=== PATIENT | female | born 1960 | race Caucasian/White ===

== ENCOUNTER 2020-08-29 07:30 | Day surgery (SDC) | payer OTHER ==
[2020-08-22 11:45] VITALS: BMI 32.4
--- OUTSIDE RECORDS SUMMARY | 2020-08-29 07:35 | XMS ---
:1960 Author Organization [facility] Care Team Providers Name Role Phone ISABEL BLANCO Unavailable Unavailable GELY FRIEDMAN Unavailable Unavailable PRADIP EASLEY Unavailable Unavailable MARLO PLASENCIA MD Unavailable Unavailable MARLO PLASENCIA MD Unavailable Unavailable SIMEON LANIER Unavailable Unavailable SHIVANI MCCONNELL Unavailable Unavailable MAGDY, KING Unavailable Unavailable RALPH, R, [id number] Unavailable Unavailabl QIANA Lam Unavailable Unavailable AVTAR KAJANNAK Unavailable Unavailable LEFKOVCAT, MERE Unavailable Unavailable MARGE MONTES Unavailable Unavailable KIARRA ZAMBRANO Unavailable Unavailable NAVARRO HURST Unavailable Unavailable ADA AMOR Unavailable Unavailable EMERGENCY SERVICE, X Unavailable Unavailable MARCOS TRISTAN Unavailable Unavailable HAL MURILLO Unavailable Unavailable DEN TIDWELL Unavailable Unavailable JORJE HODGES Unavailable Unavailable Re-disclosure Warning The records that you are about to access may contain information from federally- assisted alcohol or drug abuse programs. If such information is present, then the following federally mandated warning applies: This information has been disclosed to you from records protected by federal confidentiality rules (42 CFR part 2). The federal rules prohibit you from making any further disclosure of this information unless further disclosure is expressly permitted by the written consent of the person to whom it pertains or as otherwise permitted by 42 CFR part 2. A general authorization for the release of medical or other information is NOT sufficient for this purpose. The Federal rules restrict any use of the information to criminally investigate or prosecute any alcohol or drug abuse patient.The records that you are about to access may contain highly sensitive health information, the redisclosure of which is protected by Article 27-F of the [facility] Public Health law. If you continue you may haveaccess to information: Regarding HIV / AIDS; Provided by facilities licensed or operated by the [facility] Office of Mental Health; or Provided by the [facility] Office for People With Developmental Disabilities. If such information is present, then the following [facility] mandated warning applies: This information has been disclosed to you from confidential records which are protected by state law. State law prohibits you from making any further disclosure of this information without the specific written consent of the person to whom it pertains, or as otherwise permitted by law. Any unauthorized further disclosure in violation of state law may result in a fine or penitentiary sentence or both. A general authorization for the release of medical or other information is NOT sufficient authorization for further disclosure. Encounters Encounter Providers Location Date Indications Data Source(s ) Outpatient Attender: MAGDY, 08/18/2020 [id number] [facility] MAGDY [employer] Contemporary Analysis REENAReferrer: KING CURRAN [id number] Outpatient Attender: MAGDY, 08/16/2020 06:00:00 [facility]AN [facility] KING Contemporary Analysis Outpatient Attender: SIMON, 07/28/2020 [facility] Contemporary Analysis Outpatient Attender: KAUSHAL 07/25/2020 06:00:00 AM [facility] PRADIP HogdesAdmitter: EDT [facility] Contemporary Analysis PRADIP EASLEY FV Outpatient Attender: KUN 07/13/2020 [facility] DARCIEAAttender: 06:00:[address] [facility] ADA AMORAdmitter: MARCOS TRISTAN Emergency Attender: TRACIE, 07/03/2020 [facility] SAMARAttender: 11:52:00 PM EDT AQR [facility] EMERGENCY SERVICE, Corpor ation XAdmitter: JORJE HODGES STOMACH PAIN AQR Outpatient Attender: CHIDI, 05/11/2020 12:00:00 CPT 72 100 CPT [facility] HAL LopezAdmitter: AM EDT [id number] Health C are HAL MURILLO ARadhaReferrer: HAL MUIRLLO CPT 37571 CPT 26326 Outpatient Attender: CHIDI 05/04/2020 06:00:00 AM [facility] HAL LopezAdmitter: EDT Health C are Contemporary Analysis HAL MURILLOReferrer: HAL MURILLO Outpatient Attender: MAGDY, 04/18/2020 06:00:00 [facility] Contemporary Analysis PRADIP EASLEYAdmitter: KING CURRAN VV Outpatient Attender: AVTAR, 04/03/2020 09:35:00 Z01.84 [facility] AV[facility]AR[facility] AM EDT [facility] Care KAUSIKReferrer: AVTAR, Taylor oration KAUSIK Z01.84 Outpatient Attender: MAGDY 03/21/2020 06:00:00 [facility] MAGDY AM EDT H ealth Care Spotivate VV Outpatient Attender: AVTAR 03/08/2020 06:00:00 Z03.818 [facility] AVTAR AM EDT [facility]al th Care KAUSIKReferrer: AVTAR, Taylor oration KAUSIK Z03.818 Outpatient Attender: [id number] 02/15/2020 10:57:00 [facility] RALPH, AM EDT Healt h Care RAdmitter: [id number] Corpora Mya Smyth Outpatient Attender: HAL MURILLO 02/03/2020 04:53:00 [facility] MontgomeryRadhaAdmitter: HAL MURILLO PM EDT Health Care BehavioSec Outpatient Attender: SARKIS 12/29/2019 12:04:00 [facility] CINDA DOCKERY EST H ealth Care [employer] [place] Outpatient Attender: [id number] 12/29/2019 10:13:00 [facility] RALPH AM EST Healt h Care RAdmitter: [id number] Corpora Mya Smyth Outpatient Attender: DIANN 12/17/2019 06:00:00 F[facility] GARYAdmitter: DEN TIDWELL [facility] FV Outpatient Attender: [id number] 11/26/2019 11:19:00 [facility] URIELJAYRO [facility] Healt h Care RAdmitter: [id number] Corpora Mya Smyth Outpatient Attender: ADA AMOR 11/19/2019 06:00:00 R10 .9 [facility] LesterAdmitter: AAD AMOR [facility] HospitalRadhaReferrer: ADA AMOR [facility] R10.9 Outpatient Attender: [id number] 11/09/2019 10:42:00 [facility] RALPH [facility] Healt h Care RAdmitter: [id number] CorporMya Barraza Outpatient Attender: YOLANDE, 11/05/2019 02:55:00 [facility]INEAttender: JAYESH [facility] Health Care LEANNEAdmitter: [facility] HOSPITALStudio Publishing SIMEON FV Outpatient Attender: YOLANDE, 10/29/2019 06:00:00 F[facility] CHRISTINEAdmitter: [facility] Taylor oration FV Outpatient Attender: ZULEYMA, 10/28/2019 12:08:00 [facility] ADA BatistaAdmitter: [facility] Health [facility] ADA AMOR Corporat ion Outpatient Attender: [id number] 10/28/2019 09:54:00 [facility] RALPH [facility] Healt h Care RAdmitter: [id number] Corpora Mya Smyth Outpatient Attender: MARLO 10/25/2019 07:24:00 Z12.11 [facility] LUIS ANGEL MDAdmitter: [facility] Care MARLO PLASENCIA Corporati on MDReferrer: MARLO PLASENCIA MD Z12.11 Outpatient Attender: MARLO PLASENCIA 10/25/2019 05:00:00 Z 12.11 [facility] MDAttender: ELDER [facility] Care DIMITRIOSAdmitter: MARLO PRESTONI MDReferrer: MARLO PLASENCIA MD Z12.11 Outpatient Attender: ESTELA, 10/15/2019 06:00:00 R10.81 1 [facility] ZVIAdmitter: MALLIKA PALMER [facility] ZVIReferrer: KIARRA Corpo ration KENYA R10.811 Outpatient Attender: ESTELA, 10/08/2019 06:00:00 R10.81 1 [facility] ZVIAdmitter: MALLIKA PALMER EST H ealt Care ZVIReferrer: KIARRA Corpo ration KENYA R10.811 Outpatient Attender: [id number] 10/07/2019 10:04:00 [facility] MALLIKA ROSAS EST Healt Care RAdmitter: [id number] Corpora Mya Smyth Outpatient Attender: SARKIS, 10/01/2019 09:19:00 [facility] Reading[facility]: MALLIKA TIDWELL [facility] GARYAdmitter: QIANA DOCKERY Contemporary Analysis Outpatient Attender: KAUSHAL 09/28/2019 04:08:00 PM F[facility] PRADIP HodgesAdmitter: [facility] Contemporary Analysis PRADIP EASLEY Outpatient Attender: NATALI, 09/09/2019 09:54:00 [facility] NEOttender: AM EDT [facility] PRADIP EASLEYAdmitter: NAVARRO HURST Outpatient Attender: DIANN 07/02/2019 08:02:00 [facility] MALLIKA BLANCO EDT [facility] Care REBECCAAdmitter: DIANN [facility] DEN FV Medications Medication Brand Start Product Dose Route Administrative Pharmacy [facility] Indications Reaction Description Data Name Date Form Instructions Instructions Source(s) Pepcid Pepcid mg UNK active Pepcid Doug tcheste (Famotidine (Famot 2020 (Famotidine ) r [facility] ) idiin) 01:19: Injection 20 Hea lth 28 AM mg Care EDT Corporatio n Medication administered onsite 0.9% NaCl 0.9% NaCl 07/03/2020 1000 mL UNK active 0.9% [place] IV IV 11:49:37 PM NaCl IV Count Health EDT 1000 mL ; Care IV rate: Corporation 1000 mL/hr Medication administered onsite Insurance Providers Payer name Policy type Policy ID Covered Covered alliance party's Policy P gurwinder / Coverage alliance party ID relationship to [place] Inf ormation type lima [facility] HEALTH [id number] SP [id number] CARE [facility] ESSENTIAL [id number] SP [id number] PLAN 3 4 Problems, Conditions, and Diagnoses Code Display Name Description Problem Type Effective Data Sour ce(s) Dates G47.33 Obstructive sleep OBSTRUCTIVE SLEEP Diagnosis 08/18/2020 [place] apnea (adult) APNEA (ADULT) 06:00:00 AM [facility] (pediatric) (PEDIATRIC) EDT Care Contemporary Analysis H26.9 Unspecified cataract UNSPECIFIED Diagnosis 08/18/2020 [facility] [place] CATARACT 06:00:00 AM [facility] EDT Care Contemporary Analysis Z01.818 Encounter for other ENCOUNTER FOR OTHER Diagnosis [place] preprocedural PREPROCEDURAL 06:00:00 AM [facility] examination EXAMINATION EDT Care Contemporary Analysis E78.5 Hyperlipidemia, HYPERLIPIDEMIA, Diagnosis 07/28/2020 [place] unspecified UNSPECIFIED 02:01:00 PM [facility] EDT Care Contemporary Analysis I10 Essential (primary) ESSENTIAL (PRIMARY) Diagnosis [place] hypertension HYPERTENSION 02:01:00 PM [facility] EDT Care Contemporary Analysis R19.7 Diarrhea, DIARRHEA, Diagnosis 07/28/2020 [place] unspecified UNSPECIFIED 02:01:00 PM [facility] EDT Care Contemporary Analysis M79.605 Pain in left leg PAIN IN LEFT LEG Diagnosis 07/25/2020 [facility] 06:00:00 AM [facility] EDT Care Contemporary Analysis R10.9 Unspecified UNSPECIFIED Diagnosis 07/25/2020 [place] abdominal pain ABDOMINAL PAIN 06:00:00 AM [facility] EDT Care Contemporary Analysis A04.5 Campylobacter CAMPYLOBACTER Diagnosis 07/25/2020 [facility] enteritis ENTERITIS 06:00:00 AM [facility] [employer] Z91.018 Allergy to other ALLERGY TO OTHER Diagnosis 07/03/2020 [place] foods FOODS 11:52:00 PM [facility] [employer]T [employer] Z88.0 Allergy status to ALLERGY STATUS TO Diagnosis 07/03/2020 [place] penicillin PENICILLIN 11:52:00 PM [facility] [employer] Z86.19 Personal history of PERSONAL HISTORY OF Diagnosis [place] other infectious and OTHER INFECTIOUS 11:52:00 PM [facility] parasitic diseases AND PARASITIC EDT Car e DISEASES Corporation Z86.69 Personal history of PERSONAL HISTORY OF Diagnosis [place] other diseases of DIS OF THE NERVOUS 11:52:00 P M [facility] the nervous system SYS AND SENSE EDT Car e and sense organs ORGANS Corporat ion E78.00 Pure PURE Diagnosis 07/03/2020 [place] hypercholesterolemia HYPERCHOLESTEROLEMI 11:52: 00 PM [facility] , unspecified A, UNSPECIFIED EDT Care Contemporary Analysis K29.00 Acute gastritis ACUTE GASTRITIS Diagnosis 07/03/[address] [place] without bleeding WITHOUT BLEEDING 11:52:00 PM [facility] Contemporary Analysis R10.13 Epigastric pain EPIGASTRIC PAIN Diagnosis 07/03/2020 [place] 11:52:00 PM [facility] EDT Care Contemporary Analysis M54.5 Low back pain LOW BACK PAIN Diagnosis 05/11/2020 [facility] 12:00:00 AM [facility] Net[employer]T Care Contemporary Analysis R10.30 Lower abdominal LOWER ABDOMINAL Diagnosis 05/11/[address] [place] pain, unspecified PAIN, UNSPECIFIED 12:00:00 AM [facility] Net[employer]T Care Contemporary Analysis B96.81 Helicobacter pylori HELICOBACTER PYLORI Diagnosis [place] [H. pylori] as the THE CAUSE OF 12:00:00 AM [facility] cause of diseases DISEASES CLASSD EDT Ca re classified elsewhere ELSWHR Taylor oration N28.1 Cyst of kidney, CYST OF KIDNEY, Diagnosis 05/11/2020 [place] acquired ACQUIRED 12:00:00 AM [facility] EDT Care Contemporary Analysis E66.9 Obesity, unspecified OBESITY, Diagnosis 04/18/2020 [place] UNSPECIFIED 06:00:[address] [facility] EDT Care Contemporary Analysis N20.0 Calculus of kidney CALCULUS OF KIDNEY Diagnosis 0 [place] 06:00:00 AM [facility] EDT Care Contemporary Analysis N60.09 Solitary cyst of SOLITARY CYST OF Diagnosis 04/18/2020 [facility] unspecified breast UNSPECIFIED BREAST 06:00:00 AM [facility] Net[employer]T Care Contemporary Analysis G56.00 Carpal tunnel CARPAL TUNNEL Diagnosis 04/18/2020 [facility] syndrome, SYNDROME, 06:00:00 AM [facility] unspecified upper UNSPECIFIED UPPER EDT Care limb [employer] J02.9 Acute pharyngitis, ACUTE PHARYNGITIS, Diagnosis 0 [place] unspecified UNSPECIFIED 06:00:00 AM [facility] EDT Care Contemporary Analysis U07.1 COVID-19 ACUTE COVID-19 ACUTE Diagnosis 04/18/2020 [facility] RESPIRATORY DISEASE RESPIRATORY DISEASE 06:00:0 0 AM [facility] Z21 Asymptomatic human ASYMPTOMATIC HUMAN Diagnosis 0 [place] immunodeficiency IMMUNODEFICIENCY 06:00:00 AM [employer] virus [HIV] VIRUS INFECTION EDT Care infection status STATUS Corporat ion Z01.84 Encounter for ENCOUNTER FOR Diagnosis 04/03/2020 [facility] antibody response ANTIBODY RESPONSE 09:35:00 AM [facility] examination EXAMINATION EDT Care Contemporary Analysis M54.9 Dorsalgia, DORSALGIA, Diagnosis 03/21/2020 [place] unspecified UNSPECIFIED 06:00:00 AM [facility] Z03.818 Encounter for ENCNTR FOR OBS FOR Diagnosis 03/08/2020 [facility] observation for SUSP EXPSR TO OTH 06:00:00 AM [employer] suspected exposure BIOLG AGENTS RULED EDT Care to other biological OUT Corpo ration agents ruled out G89.29 Other chronic pain OTHER CHRONIC PAIN Diagnosis 0 [place] 12:04:00 PM [facility] EST Care Contemporary Analysis Z68.29 Body mass index BODY MASS INDEX Diagnosis 12/29/2019 [place] (BMI) 29.0-29.9, (BMI) 29.0-29.9, 12:04:00 PM [employer] adult ADULT EST Care Contemporary Analysis R07.9 Chest pain, CHEST PAIN, Diagnosis 12/29/2019 [place] unspecified UNSPECIFIED 12:04:00 PM [facility] EST Care Contemporary Analysis G43.909 Migraine, MIGRAINE, UNSP, NOT Diagnosis 12/29/2019 [facility] [place] unspecified, not INTRACTABLE, 12:04:00 PM Count y Health intractable, without WITHOUT STATUS EST Care status migrainosus MIGRAINOSUS Corpo ration M81.8 Other osteoporosis OTHER OSTEOPOROSIS Diagnosis 0 [place] without current WITHOUT CURRENT 11:19:[address] [facility] ImmuVen pathological PATHOLOGICAL EST Care fracture FRACTURE Contemporary Analysis K08.409 Partial loss of PARTIAL LOSS OF Diagnosis 11/09/2019 [place] teeth, unspecified TEETH, UNSPECIFIED 10:42:00 AM [facility] cause, unspecified CAUSE, UNSPECIFIED [facility] class CLASS Corporation R31.9 Hematuria, HEMATURIA, Diagnosis 11/05/2019 [place] unspecified UNSPECIFIED 02:55:00 PM [facility] Contemporary Analysis Z87.442 Personal history of PERSONAL HISTORY OF Diagnosis 019 [place] urinary calculi URINARY CALCULI 02:55:00 PM [facility] Care Contemporary Analysis Z84.1 Family history of FAMILY HISTORY OF Diagnosis 11/05/2019 [place] disorders of kidney DISORDERS OF KIDNEY 02:55:0 0 PM [facility] ureter AND URETER EST Care Contemporary Analysis R19.5 Other fecal OTHER FECAL Diagnosis 11/05/2019 [place] abnormalities ABNORMALITIES 02:55:00 PM [facility] Contemporary Analysis Z23 Encounter for ENCOUNTER FOR Diagnosis 10/29/2019 [facility] immunization IMMUNIZATION 06:00:00 AM [facility] [employer] N60.01 Solitary cyst of SOLITARY CYST OF Diagnosis 10/29/2019 [facility] right breast RIGHT BREAST 06:00:00 AM [facility] Contemporary Analysis N60.02 Solitary cyst of SOLITARY CYST OF Diagnosis 10/29/2019 [facility] left breast LEFT BREAST 06:00:00 AM [facility] [employer] R76.11 Nonspecific reaction NONSPECIFIC Diagnosis 10/29/2019 [place] to tuberculin skin REACTION TO SKIN 06:00:00 AM [facility] test without active TEST W/O ACTIVE [facility] tuberculosis TUBERCULOSIS Corporatio n K64.8 Other hemorrhoids OTHER HEMORRHOIDS Diagnosis 10/29/2019 [place] 06:00:00 AM [facility] Contemporary Analysis R10.11 Right upper quadrant RIGHT UPPER Diagnosis 10/28/2019 [place] pain QUADRANT PAIN 12:08:00 PM [facility] EST Care Contemporary Analysis K86.2 Cyst of pancreas CYST OF PANCREAS Diagnosis 10/28/2019 [facility] 12:08[facility] PM [facility] Contemporary Analysis K02.9 Dental caries, DENTAL CARIES, Diagnosis 10/28/2019 [place] unspecified UNSPECIFIED 09:54:00 AM [facility] Contemporary Analysis M85.9 Disorder of bone DISORDER OF BONE Diagnosis 10/28/2019 [facility] density and DENSITY AND 09:54:00 AM [facility] structure, STRUCTURE, EST Care unspecified UNSPECIFIED Corporation K59.00 Constipation, CONSTIPATION, Diagnosis 10/25/2019 [facility] unspecified UNSPECIFIED 07:24:00 AM [facility] EST Care Corporation R10.811 Right upper quadrant RIGHT UPPER Diagnosis 10/08/2019 Doug jasmine abdominal tenderness QUADRANT ABDOMINAL 06:00:0 0 AM [facility] TENDERNESS EST Care Corporation 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 ON BIOLOGICAL 10:04:00 AM [facility] of dental implant FAILURE OF DENTAL EST Care IMPLANT Corporation L85.3 Xerosis cutis XEROSIS CUTIS Diagnosis 10/01/2019 [facility] 09:19:00 AM [facility] R19.8 Other specified OTH SYMPTOMS AND Diagnosis 09/09/2019 Doug jasmine symptoms and signs SIGNS INVOLVING THE 09:54:00 AM [facility] involving the DGST SYS AND EDT Care digestive system and ABDOMEN Taylor oration abdomen L65.9 Nonscarring hair NONSCARRING HAIR Diagnosis 09/09/2019 Nasir roberts loss, unspecified LOSS, UNSPECIFIED 09:54:00 AM [facility] Z02.1 Encounter for ENCOUNTER FOR Diagnosis 07/02/2019 [facility] pre-employment PRE-EMPLOYMENT 08:02:00 AM Count y Health examination EXAMINATION EDT Care Contemporary Analysis M25.531 Pain in right wrist PAIN IN RIGHT WRIST Diagnosis 019 [place] 08:02:00 AM [facility] Contemporary Analysis Results ID Date Data Source [id number] 08/25/2020 04:35:00 PM EDT [facility] Name Value Range Interpretation Description Data Sup porting Code Source(s) Document(s ) SARS [facility] coronavirus 2 RNA This lab was ordered by [facility] and reported by [facility]. ID Date Data Source [id number] 08/12/2020 11:00:00 AM EDT [facility] Name Value Range Interpretation Description Data Sup porting Code Source(s) Document(s ) 2019 Novel [facility] Coronavirus RNA Interpretation Unspecified Specimen Qualitative [facility] Probe Detection This lab was ordered by [facility] and reported by [facility]. ID Date Data Source [id number] 07/05/2020 03:19:00 AM EDT [facility] Name Value Range Interpretation Code Description Data Selena rce(s) Supporting Document(s ) SARS-CoV-2 [facility] N gene Resp Ql L[facility]+probe This lab was ordered by [facility] and reported by PM. ID Date Data Source [id number] 07/03/2020 06:45:00 PM EDT [facility] Name Value Range Interpretation Description Data Sup porting Code Source(s) Document(s ) SARS [facility] coronavirus 2 RNA This lab was ordered by [employer] [facility] and reported by [facility]. ID Date Data Source [id number] 07/02/2020 11:04:00 AM EDT [facility] Name Value Range Interpretation Code Description Data Selena rce(s) Supporting Document(s ) SARS-COV-2 [facility] RNA RESP Diagnostics QL [place]+PROBE This lab was ordered by [facility] and rep orted by [employer]. ID Date Data Source [id number] 03/08/2020 12:00:00 AM EDT [facility] Name Value Range Interpretation Code Description Data Selena rce(s) Supporting Document(s ) 2018-nCoV [facility] RNA XXX [place]+probe- Imp This lab was ordered by [facility] and reported by [employer] ID Date Data Source [id number] 02/07/2020 12:00:00 AM EDT [facility] Name Value Range Interpretation Code Description Data Selena rce(s) Supporting Document(s ) 2018-nCoV [facility] RNA XXX L[facility]+probe- Imp This lab was ordered by [facility] and reported by [employer] Procedure Patient Treatment Plan of Care Planned Activity Planned Date Details Description Data Source (s) Pepcid (Famotidine) 07/04/2020 01:19:28 [facility] AM EDT Health Care Cor poration 0.9% NaCl IV 07/03/2020 11:49:37 [facility] PM EDT Health Care Cor poration
[2020-08-29] MEDS ORDERED: OFLOXACIN 0.3% OPHTHALMIC SOLUTION 5 ML BOTTLE ONE (08:22)
[2020-08-29] MEDS ORDERED: PHENYLEPHRINE 2.5% OPHTH SOLN 15 ML BOTTLE ONE (08:22)
[2020-08-29] MEDS ORDERED: KETOROLAC TROMETHAMINE 0.5% EYE DROP 1 DROP DROPS ONE (08:22)
[2020-08-29] MEDS ORDERED: TROPICAMIDE 1% OPHTH SOLN 15 ML BOTTLE ONE (08:22)
[2020-08-29] MEDS ORDERED: CYCLOPENTOLATE HCL 1% OPHTH SOLN 2 ML BOTTLE ONE (08:22)
[2020-08-29] MEDS: TROPICAMIDE 1% OPHTH SOLN 15 ML BOTTLE OS SCH ×5 (08:40→09:00)
[2020-08-29] MEDS: CYCLOPENTOLATE HCL 1% OPHTH SOLN 2 ML BOTTLE OS SCH ×5 (08:40→09:00)
[2020-08-29] MEDS: PHENYLEPHRINE 2.5% OPHTH SOLN 15 ML BOTTLE OS SCH ×5 (08:40→09:00)
[2020-08-29] MEDS: KETOROLAC TROMETHAMINE 0.5% EYE DROP 1 DROP DROPS OS SCH ×5 (08:40→09:00)
[2020-08-29] MEDS: OFLOXACIN 0.3% OPHTHALMIC SOLUTION 5 ML BOTTLE OS SCH ×5 (08:40→09:00)
[2020-08-29] MEDS ORDERED: MIDAZOLAM HCL 2 MG/2 ML SINGLE DOSE VIAL ONE (10:25)
[2020-08-29] MEDS ORDERED: ACETAMINOPHEN 325 MG TABLET (FP) PO PRN (11:11)
--- NOTE | 2020-08-29 12:04 | OP ---
DATE OF OPERATION: 08/29/2020 PREOPERATIVE DIAGNOSIS: Cataract, left eye. POSTOPERATIVE DIAGNOSIS: Cataract, left eye. PROCEDURE: Cataract extraction via phacoemulsification with insertion of posterior chamber lens implant, left eye. SURGEON: Lance Martel MD ACCOUNTING ASSOCIATE: Renetta Campos MD ANESTHESIA: Topical with sedation. ESTIMATED BLOOD LOSS: Less than 1 mL. COMPLICATIONS: None. SPECIMENS: None. LENS: Multifocal lens. DESCRIPTION OF PROCEDURE: The patient was identified in the holding area. After all risks, benefits, and alternatives were explained to the patient, informed consent was obtained. The left eye was marked with a marking pen. The patient then entered the operating room on an eye stretcher. After a formal timeout was performed, topical tetracaine eyedrops were instilled onto the left eye. Left eye was then prepped and draped in the usual sterile fashion. An eyelid speculum was placed beneath the eyelids of the left eye. An inferotemporal paracentesis incision was created using a 15-degree blade. Topical preservative-free epinephrine and preservative-free lidocaine were then injected into the anterior chamber. Viscoelastic was then injected into the anterior chamber. A 2.4-mm keratome blade was then used to make a superotemporal incision. A 360-degree, continuous curvilinear capsulorrhexis was then created using bent cystotome and Utrata forceps. Hydrodissection was performed using balanced saline solution on a cannula. Phacoemulsification was introduced to disassemble and remove the nucleus in its entirety. Irrigation/aspiration was then used to remove any remaining cortical material from the eye. The capsular bag was reformed using viscoelastic. An Anish model TFNT00 with a power of 21.5 diopters, serial number [id number] was inspected, found to be defect free, and injected into the capsular bag. Irrigation/aspiration was then used to remove any remaining viscoelastic from the eye including posterior to the optic. The intraocular lens was rotated and was positioned into a completely central position, and using the Purkinje light reflexes, it was confirmed, asking the patient to center on the central Purkinje light reflex, and the multifocal lens was centered in that way. Once it was confirmed that the lens was perfectly centered, all wounds were hydrated with balanced saline solution, noted to be watertight. The anterior chamber was deep. The lens was perfectly centered in the capsular bag and the eye had adequate pressure and there was a red reflex present. Topical antibiotic eyedrops and ointment were then administered to the left eye. The eyelid speculum was removed from the left eye. Left eye was shielded. Patient tolerated the procedure well, left the operating room in stable condition to follow up in the eye clinic tomorrow morning at 10:00. LANCE MARTEL M.D. [id number]
[2020-08-29 13:33] VITALS: TEMP 99
[2020-08-29 13:35] VITALS: PULSE 79
[2020-08-29 13:38] VITALS: BP 110/70
== END 2020-08-29 12:00 | disposition home or self-care (01) ==
LOC: FASU 07:30
PROVIDERS: ATTEND Ophthalmology
PROC: 08RK3JZ Replacement of Left Lens with Synthetic Substitute, Percutaneous Approach (ICD-10-PCS; principal; 2020-08-29 10:42)
DX: H26.9 Unspecified cataract (principal)